=== PATIENT | male | born 1985 | race Hispanic/Latino ===

== ENCOUNTER 2020-03-12 17:01 | Emergency (ER) | payer SELFPAY ==
--- NOTE | 2020-03-12 18:58 | RAD REPORT ---
EXAM DESCRIPTION: RAD - Tib Fib Right - 03/12/2020 6:43 pm CLINICAL HISTORY: Swelling;Pain COMPARISON: No comparisons FINDINGS: Soft tissue swelling is seen affecting the right leg. No acute fracture or dislocation leonid dent.
--- NOTE | 2020-03-12 19:16 | RAD REPORT ---
EXAM DESCRIPTION: US - Extremity Venous Uni Ltd - 03/12/2020 7:06 pm CLINICAL HISTORY: PAIN Leg swelling and edema. COMPARISON: No comparisons FINDINGS: Right lower extremity venous system was interrogated with Doppler technique. Normal flow, compressibility and augmentation was noted. There is no DVT present.5 cm hematoma suspected anterior islas. IMPRESSION: No evidence of right lower extremity deep venous thrombosis.
--- NOTE | 2020-03-12 19:20 | EDPHYS ---
Physician Documentation [facility] Name: Gopi Ssoa Age: 34 yrs Sex: Male : 1985 Arrival Date: 03/12/2020 Time: 17:03 Bed 17 Private MD: PAKO Physician Sherif Frias HPI: 03/12 19:23 This 34 yrs old Male presents to ER via Ambulatory with complaints of Leg snw Swelling, Leg Pain. 19:23 The patient presents with an injury. The complaints affect the left islas. Context: The snw problem was sustained at home, resulted from a direct blow, from a solid object, the patient can fully bear weight, the patient is able to ambulate. Onset: The symptoms/episode began/occurred 1 week(s) ago, and became worse and became persistent. Associated signs and symptoms: Pertinent positives: swelling, bruising. Severity of symptoms: At their worst the symptoms were moderate. The patient has not experienced similar symptoms in the past. The patient has not recently seen a physician. Historical: - Allergies: 17:15 No Known Allergies; ss - Home Meds: 17:15 None [Active]; ss - PMHx: 17:15 None; ss - PSHx: 17:15 Knee surgery; ss - Immunization history:: Adult Immunizations up to date. - Social history:: Smoking status: Patient denies any tobacco usage or history of. ROS: 19:23 Constitutional: Negative for fever, chills, and weight loss, Eyes: Negative for injury, snw pain, redness, and discharge, ENT: Negative for injury, pain, and discharge, Neck: Negative for injury, pain, and swelling, Cardiovascular: Negative for chest pain, palpitations, and edema, Respiratory: Negative for shortness of breath, cough, wheezing, and pleuritic chest pain, Abdomen/GI: Negative for abdominal pain, nausea, vomiting, diarrhea, and constipation, Back: Negative for injury and pain, : Negative for injury, bleeding, discharge, and swelling, Skin: Negative for injury, rash, and discoloration, Neuro: Negative for headache, weakness, numbness, tingling, and seizure. 19:23 MS/extremity: Positive for injury or acute deformity, ecchymosis, erythema, pain, of the left islas. Exam: 19:21 Constitutional: This is a well developed, well nourished patient who is awake, alert, snw and in no acute distress. Head/Face: Normocephalic, atraumatic. Eyes: Pupils equal round and reactive to light, extra-ocular motions intact. Lids and lashes normal. Conjunctiva and sclera are non-icteric and not injected. Cornea within normal limits. Periorbital areas with no swelling, redness, or edema. Neck: Trachea midline, no thyromegaly or masses palpated, and no cervical lymphadenopathy. Supple, full range of motion without nuchal rigidity, or vertebral point tenderness. No Meningismus. Chest/axilla: Normal chest wall appearance and motion. Nontender with no deformity. No lesions are appreciated. Cardiovascular: Regular rate and rhythm with a normal S1 and S2. No gallops, murmurs, or rubs. Normal PMI, no JVD. No pulse deficits. Respiratory: Lungs have equal breath sounds bilaterally, clear to auscultation and percussion. No rales, rhonchi or wheezes noted. No increased work of breathing, no retractions or nasal flaring. Abdomen/GI: Soft, non-tender, with normal bowel sounds. No distension or tympany. No guarding or rebound. No evidence of tenderness throughout. Back: No spinal tenderness. No costovertebral tenderness. Full range of motion. Neuro: Awake and alert, GCS 15, oriented to person, place, time, and situation. Cranial nerves II-XII grossly intact. Motor strength 5/5 in all extremities. Sensory grossly intact. Cerebellar exam normal. Normal gait. Psych: Awake, alert, with orientation to person, place and time. Behavior, mood, and affect are within normal limits. 19:21 Skin: Appearance: normal except for affected area, injury, contusion(s), that are deep, of the left islas, dependent ecchymosis and edema to left lower leg, mild erythema. Vital Signs: 17:11 BP 117 / 83; Pulse 87; Resp 16; Temp 97.6(TE); Pulse Ox 97% on R/A; Weight 108.86 kg ss (R); Height 5 ft. 11 in. (180.34 cm) (R); 18:40 BP 116 / 92; Pulse 79; Resp 16; Pulse Ox 100% ; bp 17:11 Body Mass Index 33.47 (108.86 kg, 180.34 cm) MDM: 18:38 Patient medically screened. [facility] 19:22 Data reviewed: vital signs, nurses notes. Data interpreted: Pulse oximetry: on room air snw is 100 %. Interpretation: normal. Counseling: I had a detailed discussion with the patient and/or guardian regarding: the historical points, exam findings, and any diagnostic results supporting the discharge/admit diagnosis, the presence of at least one elevated blood pressure reading (>120/80) during this emergency department visit, radiology results, the need for outpatient follow up, to return to the emergency department if symptoms worsen or persist or if there are any questions or concerns that arise at home. Special discussion: I have referred the patient to see his PCP for further evaluation of high blood pressure. the parent(s) request. 03/12 17:22 Order name: Extremity Venous Uni Ltd US; Complete Time: 19:21 ca1 03/12 17:22 Order name: Tib Fib Right XRAY; Complete Time: 19:00 [facility] 03/12 19:02 Order name: Wound dressing: mildly compressive; Complete Time: 19:32 snw Administered Medications: 19:15 Drug: [place] 5 mg-325 mg 1 tabs {Note: rass 0.} Route: PO; ca1 Disposition: 03/12/20 19:19 Discharged to Home. Impression: Lower extremity hematoma. - Condition is Stable. - Discharge Instructions: Edema, Hematoma. - Prescriptions for Tylenol- Codeine #3 300-30 mg Oral Tablet - take 2 tablet by ORAL route every 6 hours As needed; 30 tablet. - Work release form, Medication Reconciliation Form, Thank You Letter, Antibiotic Education, Prescription Opioid Use form. - Follow up: Emergency Department; When: As needed; Reason: Worsening of condition. Follow up: Private Physician; When: 2 - 3 days; Reason: Recheck today's complaints, Continuance of care, Re-evaluation by your physician. Addendum: 03/14/2020 11:08 Co-signature as Attending Physician, Sherif Frias MD I agree with the assessment and c samaniego plan of care. Signatures: Dispatcher [employer] EDArun Mccarty RN RN Sherif Frias MD MD cha Waters, Shelly, TELECOMMUNICATIONS LINE MECHANIC-C TELECOMMUNICATIONS LINE MECHANIC-Csnw Lakeisha Solis RN RN ss Sanjana Huizar RN RN ca1 Corrections: (The following items were deleted from the chart) 03/12 19:33 19:19 03/12/2020 19:19 Discharged to Home. Impression: Lower extremity hematoma. sg Condition is Stable. Forms are Medication Reconciliation Form, Thank You Letter, Antibiotic Education, Prescription Opioid Use. Follow up: Emergency Department; When: As needed; Reason: Worsening of condition. Follow up: Private Physician; When: 2 - 3 days; Reason: Recheck today's complaints, Continuance of care, Re-evaluation by your physician. snw
--- NOTE | 2020-03-12 19:20 | ER ---
Nurse's Notes [facility] Name: Gopi Sosa Age: 34 yrs Sex: Male : 1985 Arrival Date: 03/12/2020 Time: 17:03 Bed 17 Private MD: Diagnosis: Lower extremity hematoma Presentation: 03/12 17:11 Chief complaint: Patient states: R Leg pain since 1.5 wk ago. Bruising and swelling of ss R foot 3-4 days. It started with my nephew's head colliding on my islas, it had a knot after, swelling and pain. Put some ice pack on, it got better but 3-4 days ago, there was swelling and bruising on my R foot. Coronavirus screen: Client denies travel out of the [place] in the last 14 days. At this time, the client does not indicate any symptoms associated with coronavirus-19. Ebola Screen: Patient negative for fever greater than or equal to 101.5 degrees Fahrenheit, and additional compatible Ebola Virus Disease symptoms Patient denies exposure to infectious person. Patient denies travel to an Ebola-affected area in the 21 days before illness onset. No symptoms or risks identified at this time. Initial Sepsis Screen: Does the patient meet any 2 criteria? No. Patient's initial sepsis screen is negative. Does the patient have a suspected source of infection? No. Patient's initial sepsis screen is negative. Risk Assessment: Do you want to hurt yourself or someone else? Patient reports no desire to harm self or others. Onset of symptoms was March 12, 2020. 17:11 Method Of Arrival: Ambulatory 17:11 Acuity: REBEL 4 Triage Assessment: 18:30 General: Appears in no apparent distress. uncomfortable, Behavior is cooperative, bp appropriate for age, anxious. Pain: Complains of pain in right leg. EENT: No deficits noted. Neuro: No deficits noted. Cardiovascular: No deficits noted. Respiratory: No deficits noted. GI: No signs and/or symptoms were reported involving the gastrointestinal system. : No signs and/or symptoms were reported regarding the genitourinary system. Derm: No deficits noted. Musculoskeletal: Circulation, motion, and sensation intact. Range of motion: intact in all extremities. Injury Description: Bruise sustained to right leg. Historical: - Allergies: 17:15 No Known Allergies; ss - Home Meds: 17:15 None [Active]; ss - PMHx: 17:15 None; ss - PSHx: 17:15 Knee surgery; ss - Immunization history:: Adult Immunizations up to date. - Social history:: Smoking status: Patient denies any tobacco usage or history of. Screenin:30 Abuse screen: Denies threats or abuse. Denies injuries from another. Nutritional bp screening: No deficits noted. Tuberculosis screening: No symptoms or risk factors identified. Fall Risk None identified. Assessment: 18:30 General: SEE TRIAGE NOTE. bp Vital Signs: 17:11 BP 117 / 83; Pulse 87; Resp 16; Temp 97.6(TE); Pulse Ox 97% on R/A; Weight 108.86 kg ss (R); Height 5 ft. 11 in. (180.34 cm) (R); 18:40 BP 116 / 92; Pulse 79; Resp 16; Pulse Ox 100% ; bp 17:11 Body Mass Index 33.47 (108.86 kg, 180.34 cm) ED Course: 17:03 Patient arrived in ED. ag5 17:15 Triage completed. ss 17:15 Arm band placed on right wrist. ss 17:48 Silvana Lee FNP-C is PHCP. snw 17:48 Sherif Frias MD is Attending Physician. snw 18:30 Patient has correct armband on for positive identification. Bed in low position. Call bp light in reach. Side rails up X2. Adult w/ patient. 18:35 Arley Bustamante, RN is Primary Nurse. bp 18:43 Tib Fib Right XRAY In Process Unspecified. EDMS 19:07 Extremity Venous Uni Ltd US In Process Unspecified. EDMS 19:30 No provider procedures requiring assistance completed. Patient did not have IV access sg during this emergency room visit. Administered Medications: 19:15 Drug: [place] 5 mg-325 mg 1 tabs {Note: rass 0.} Route: PO; ca1 Outcome: 19:19 Discharge ordered by . snw 19:30 Discharged to home ambulatory, with family. sg 19:30 Condition: good 19:30 Discharge instructions given to patient, family, Instructed on discharge instructions, follow up and referral plans. medication usage, safety practices, Demonstrated understanding of instructions, follow-up care, medications, Prescriptions given X 1. 19:33 Patient left the ED. sg Signatures: Dispatcher [employer] EDMS Arun Bryan, CHAPIN RN sg Silvana Lee, PARISH NURSE-C PARISH NURSE-Dontrellw Lakeisha Solis RN RN ss Arley Bustamante RN RN bp Sanjana Huizar RN RN [facility] Stephanie Watson ag5
[2020-03-12] MEDS ORDERED: HYDROCODONE/APAP 5/325 MG TAB ONE (19:22)
[2020-03-12 19:38] VITALS: TEMP 97.6
[2020-03-12 19:39] VITALS: BP 116/92; O2SAT 100
== END 2020-03-12 19:33 | disposition home or self-care (01) ==
LOC: ER 17:01
DX: S80.12XA Contusion of left lower leg, initial encounter (principal); W22.8XXA Striking against or struck by other objects, initial encounter; Y93.9 Activity, unspecified; Y92.009 Unspecified place in unspecified non-institutional (private) residence as the place of occurrence of the external cause
CPT/HCPCS: 93971; 99283

== ENCOUNTER 2021-03-05 14:12 | Inpatient (IN) | payer SELFPAY ==
[2021-03-05] MEDS ORDERED: METHYLPREDNISOLONE 125 MG INJ ONE (16:04)
[2021-03-05] MEDS ORDERED: NA CHLORIDE 0.9% 1,000 ML ONE (16:04)
[2021-03-05 16:06] LABS: Absolute Lymphocytes (CBC) 1.4 K/uL (0.7-4.9); Basophils % 0.7 % (0-1.3); Hematocrit 46.6 % (39.6-49.0); Lymphocytes % 13.5 % (15.3-44.8); MPV 9.5 fL (7.6-11.3); RBC Red Blood Cell Count 5.48 M/uL (4.33-5.43)
[2021-03-05] MEDS ORDERED: ASPIRIN 81 MG CHEWABLE TABLET ONE (16:06)
[2021-03-05 16:07] LABS: Protime INR 1.09
[2021-03-05 16:21] LABS: Arterial Blood Carboxyhemoglob 1.2 % (0-1.5); Blood O2 Saturation 91.1 % (92-98.5)
--- NOTE | 2021-03-05 16:48 | RAD REPORT ---
EXAM DESCRIPTION: RAD - Chest Single View - 03/05/2021 4:31 pm CLINICAL HISTORY: SOB COMPARISON: No comparisons FINDINGS: Lines: None. Lungs: Moderate patchy bilateral airspace disease. Pleural: No significant pleural effusions or pneumothorax. Cardiac: The heart size is within normal limits. Bones: No acute fractures. Other: IMPRESSION: Moderate bilateral airspace disease concerning for multifocal pneumonia, including Covid -19.
[2021-03-05 16:50] LABS: ALT/SGPT 138 U/L (12-78); AST/SGOT 79 U/L (15-37); Alkaline Phosphatase 120 U/L (45-117); BUN Blood Urea Nitrogen 12 mg/dL (7-18); Bicarbonate 24 mmol/L (21-32); Ferritin 1231.9 ng/mL (26-388); Glucose Level 99 mg/dL (74-106); Magnesium 2.4 mg/dL (1.8-2.4); NT PRO-BNP 19 pg/mL (<125); Potassium 3.8 mmol/L (3.5-5.1); Protein, Total 7.7 g/dL (6.4-8.2); Sodium Level 133 mmol/L (136-145); Troponin (Emerg Dept Use Only) < 0.02 ng/mL (0.0-0.045)
--- NOTE | 2021-03-05 17:37 | RAD REPORT ---
EXAM DESCRIPTION: CT - Chest For Pe Angio - 03/05/2021 5:29 pm CLINICAL HISTORY: CHEST PAIN COMPARISON: Chest Single View dated 03/05/2021 FINDINGS: Chest Wall: No suspicious thyroid nodules or pathologic lymphadenopathy. Lungs: Moderate to severe bilateral airspace disease. Pleura: No significant effusions or pneumothorax. Mediastinum/willis: Reactive sized hilar lip and mediastinal lymph nodes. Pulmonary arteries/Aorta: No filling defect identified. No aortic aneurysm. Heart: No significant pericardial effusion. Normal heart size. Upper abdomen: No acute abnormality. Hepatic steatosis. Bones: No acute abnormality. All CT scans are performed using dose optimization technique as appropriate and may include automated exposure control or mA/KV adjustment according to patient size. IMPRESSION: Negative for pulmonary embolism. Moderate to severe bilateral airspace disease concernin g for Covid-19 pneumonia.
--- NOTE | 2021-03-05 18:06 | ER ---
Nurse's Notes [facility] Name: Gopi Sosa Age: 35 yrs Sex: Male : 1985 Arrival Date: 03/05/2021 Time: 14:15 Bed 2 Private MD: Diagnosis: Pneumonia due to SARS-associated coronavirus;Hypoxemia Presentation: 03/05 14:32 Chief complaint: Parent and/or Guardian states: Pt was Covid tested on February 252020, results Positive. Pt O2 at home was 88% RA. Pt states is unable to eat and hold anything down. Pt states coughing and difficulty breathing. Coronavirus screen: Vaccine status: Patient reports being unvaccinated. Client denies travel out of the [place] in the last 14 days. Client reports previous positive COVID test result. Ebola Screen: Patient negative for fever greater than or equal to 101.5 degrees Fahrenheit, and additional compatible Ebola Virus Disease symptoms. Initial Sepsis Screen: Does the patient meet any 2 criteria? No. Patient's initial sepsis screen is negative. Does the patient have a suspected source of infection? No. Patient's initial sepsis screen is negative. Risk Assessment: Do you want to hurt yourself or someone else? Patient reports no desire to harm self or others. Onset of symptoms was February 25, 2021. 14:32 Method Of Arrival: Ambulatory vg1 14:32 Acuity: REBEL 3 vg1 Triage Assessment: 14:35 General: Appears in no apparent distress. uncomfortable, Behavior is calm, cooperative. vg1 Pain: Denies pain. Historical: - Allergies: 14:35 No Known Allergies; vg1 - Home Meds: 14:35 None [Active]; vg1 - PMHx: 14:35 None; vg1 - PSHx: 14:35 None; vg1 - Immunization history:: Adult Immunizations up to date, Client reports having NOT received the Covid vaccine. - Social history:: Smoking status: Patient denies any tobacco usage or history of. Screenin:33 Abuse screen: Denies threats or abuse. Denies injuries from another. Nutritional hb screening: No deficits noted. Tuberculosis screening: No symptoms or risk factors identified. Fall Risk None identified. Assessment: 14:41 Reassessment: Pt placed on NC at 2L, Ox2 is 94%. vg1 15:30 General: Appears in no apparent distress. Behavior is calm, cooperative. Pain: Denies hb pain. Neuro: Level of Consciousness is awake, alert, obeys commands, Oriented to person, place, time, situation. Cardiovascular: Patient's skin is warm and dry. Respiratory: Reports shortness of breath at rest Respiratory effort is even, unlabored, Respiratory pattern is regular, symmetrical. GI: No signs and/or symptoms were reported involving the gastrointestinal system. : No signs and/or symptoms were reported regarding the genitourinary system. EENT: No signs and/or symptoms were reported regarding the EENT system. Derm: Skin is pink, warm \T\ dry. Musculoskeletal: No signs and/or symptoms reported regarding the musculoskeletal system. 16:30 Reassessment: Patient appears in no apparent distress at this time. Patient and/or hb family updated on plan of care and expected duration. Pain level reassessed. Patient is alert, oriented x 3, equal unlabored respirations, skin warm/dry/pink. 17:30 Reassessment: Patient appears in no apparent distress at this time. Patient and/or hb family updated on plan of care and expected duration. Pain level reassessed. Patient is alert, oriented x 3, equal unlabored respirations, skin warm/dry/pink. 18:29 Reassessment: Patient appears in no apparent distress at this time. hb Vital Signs: 14:32 BP 109 / 84; Pulse 100; Resp 20; Temp 98.4(O); Pulse Ox 92% on R/A; Weight 113.4 kg; vg1 Height 5 ft. 11 in. (180.34 cm); Pain 0/10; 16:45 BP 89 / 58; Pulse 93; Pulse Ox 89% on 2 lpm NC; ch5 17:05 BP 94 / 58; Pulse 84; Resp 18; Pulse Ox 94% on 2 lpm NC; ch5 18:29 BP 115 / 80; Pulse 78; Resp 24; Pulse Ox 92% on 2 lpm NC; hb 21:30 BP 122 / 78; Pulse 72; Resp 22; Temp 98.0; Pulse Ox 95% ; ea 14:32 Body Mass Index 34.87 (113.40 kg, 180.34 cm) vg1 ED Course: 14:15 Patient arrived in ED. ds1 14:35 Triage completed. vg1 14:35 Arm band placed on. vg1 15:15 Sherif Perez PA is PHCP. cp 15:15 Kennedy Sinha MD is Attending Physician. cp 15:38 Sarika Danielson, RN is Primary Nurse. hb 16:30 Patient has correct armband on for positive identification. Bed in low position. Call light in reach. 16:31 XRAY Chest (1 view) In Process Unspecified. EDMS 17:19 Inserted saline lock: 20 gauge in left antecubital area, using aseptic technique. dh3 17:30 CT Chest For PE Angio In Process Unspecified. EDMS 18:05 Reynaldo Wise MD is Hospitalizing Provider. cp 22:08 No provider procedures requiring assistance completed. Patient admitted, IV remains in ea place. Administered Medications: 16:01 Drug: Aspirin Chewable Tablet 324 mg Route: PO; hb 18:30 Follow up: Response: No adverse reaction hb 16:02 Drug: SOLU-Medrol (methylPrednisoLONE) 125 mg Route: IVP; Site: left antecubital; hb 17:00 Follow up: Response: No adverse reaction hb 16:02 Drug: NS 0.9% 1000 ml Route: IV; Rate: 1 bolus; Site: left antecubital; hb 18:30 Drug: NS 0.9% 1000 ml Route: IV; Rate: 1 bolus; Site: left antecubital; hb Outcome: 18:06 Decision to Hospitalize by Provider. cp 22:08 Admitted to Med/surg accompanied by tech, via wheelchair, with chart, Report called to ea Receiving nurse on fourth floor 22:08 Condition: stable 22:08 Instructed on the need for admit, Demonstrated understanding of instructions. 22:10 Patient left the ED. ea Signatures: Dispatcher [employer] EDCT Fay Campbell ds1 Sherif Perez PA PA cp Sarika Danielson, RN RN Lakeshia Dickerson 3 Monie Mcgrath RN RN ea Garcia, Victoria, RN RN 1 Panchito Kang, RN RN ch5
--- NOTE | 2021-03-05 18:07 | EDPHYS ---
Physician Documentation [facility] Name: Gopi Sosa Age: 35 yrs Sex: Male : 1985 Arrival Date: 03/05/2021 Time: 14:15 Bed 2 Private MD: ED Physician Kennedy Sinha HPI: 03/05 15:40 This 35 yrs old Male presents to ER via Ambulatory with complaints of Covid +. cp 15:40 The patient has shortness of breath at rest. Onset: The symptoms/episode began/occurred cp gradually, and became worse today. 15:40 Duration: The symptoms are continuous, and are steadily getting worse. Associated signs cp and symptoms: Pertinent positives: non-productive cough, Pertinent negatives: chest pain, fever, vomiting. Patient reports testing positive for COVID-19 on 02-25-2021 with symptoms starting a couple days earlier. Historical: - Allergies: 14:35 No Known Allergies; vg1 - Home Meds: 14:35 None [Active]; vg1 - PMHx: 14:35 None; vg1 - PSHx: 14:35 None; vg1 - Immunization history:: Adult Immunizations up to date, Client reports having NOT received the Covid vaccine. - Social history:: Smoking status: Patient denies any tobacco usage or history of. ROS: 15:45 Constitutional: Negative for body aches, chills, fever, poor PO intake. cp 15:45 Eyes: Negative for injury, pain, redness, and discharge. cp 15:45 ENT: Negative for ear pain, sore throat, difficulty swallowing, difficulty handling secretions. 15:45 Cardiovascular: Negative for chest pain, edema, palpitations. 15:45 Respiratory: Positive for cough, with no reported sputum, shortness of breath, at rest. Negative for wheezing. 15:45 Abdomen/GI: Negative for abdominal pain, nausea, vomiting, and diarrhea. 15:45 Neuro: Negative for altered mental status, headache, weakness. 15:45 All other systems are negative. cp Exam: 15:50 Constitutional: The patient appears in no acute distress, alert, awake, cp non-diaphoretic, non-toxic, well developed, well nourished, obese. 15:50 Head/Face: Normocephalic, atraumatic. cp 15:50 Eyes: Periorbital structures: appear normal, Conjunctiva: normal, no exudate, no injection, Sclera: no appreciated abnormality, Lids and lashes: appear normal, bilaterally. 15:50 ENT: External ear(s): are unremarkable, Nose: is normal, Mouth: Lips: moist, Oral mucosa: pink and intact, moist, Posterior pharynx: Airway: no evidence of obstruction, patent, Tonsils: are normal in appearance, erythema, is not appreciated, exudate, is not appreciated. 15:50 Neck: ROM/movement: is normal, is supple, without pain, no range of motions limitations, no meningismus. 15:50 Chest/axilla: Inspection: normal, Palpation: is normal, no crepitus, no tenderness. 15:50 Cardiovascular: Rate: tachycardic, Rhythm: regular, Edema: is not appreciated, JVD: is not appreciated. 15:50 Respiratory: the patient does not display signs of respiratory distress, Respirations: labored breathing, that is mild, shallow respirations, that is mild, Breath sounds: bronchial sounds, that are mild, are heard diffusely, decreased breath sounds, that are mild, throughout, stridor, is not appreciated, wheezing: is not appreciated. 15:50 Abdomen/GI: Inspection: abdomen appears normal, Palpation: abdomen is soft and non-tender, in all quadrants. 15:50 Back: pain, is absent, ROM is normal. 15:50 Skin: no rash present. 15:50 Neuro: Orientation: to person, place \T\ time. Mentation: is normal, Motor: moves all fours, strength is normal. 15:55 ECG was reviewed by the Attending Physician. cp Vital Signs: 14:32 BP 109 / 84; Pulse 100; Resp 20; Temp 98.4(O); Pulse Ox 92% on R/A; Weight 113.4 kg; vg1 Height 5 ft. 11 in. (180.34 cm); Pain 0/10; 16:45 BP 89 / 58; Pulse 93; Pulse Ox 89% on 2 lpm NC; ch5 17:05 BP 94 / 58; Pulse 84; Resp 18; Pulse Ox 94% on 2 lpm NC; ch5 18:29 BP 115 / 80; Pulse 78; Resp 24; Pulse Ox 92% on 2 lpm NC; hb 21:30 BP 122 / 78; Pulse 72; Resp 22; Temp 98.0; Pulse Ox 95% ; ea 14:32 Body Mass Index 34.87 (113.40 kg, 180.34 cm) vg1 MDM: 15:31 Patient medically screened. cp 16:00 Differential diagnosis: pneumonia, Pneumothorax pulmonary edema, Pulmonary Embolism cp Sepsis. 17:45 Data reviewed: vital signs, nurses notes, lab test result(s), EKG, radiologic studies, cp plain films. 17:45 Test interpretation: by ED physician or midlevel provider: ECG, plain radiologic cp studies. 18:05 Data interpreted: library monitor: rhythm is normal sinus rhythm, Interpretation: cp normal rate, Pulse oximetry: on room air when ambulating is 88 %. Interpretation: hypoxia. Plan: O2 by NC applied. 18:05 Counseling: I had a detailed discussion with the patient and/or guardian regarding: the cp historical points, exam findings, and any diagnostic results supporting the discharge/admit diagnosis, lab results, radiology results, the need for further work-up and treatment in the hospital. Physician consultation: Jadiel Celaya was called at 18:00, was contacted at 18:00, regarding admission, to the telemetry unit. patient's condition. 03/05 15:34 Order name: Basic Metabolic Panel; Complete Time: 17:06 03/05 17:06 Interpretation: Normal except: NA 133. 03/05 15:34 Order name: CBC with Diff; Complete Time: 17:06 03/05 17:07 Interpretation: Normal except: RBC 5.48; TARYN% 75.4; LYM% 13.5. 03/05 15:34 Order name: LFT's; Complete Time: 17:06 03/05 15:34 Order name: Magnesium; Complete Time: 17:06 03/05 15:34 Order name: NT PRO-BNP; Complete Time: 17:06 03/05 15:34 Order name: PT-INR; Complete Time: 17:06 03/05 15:34 Order name: Troponin (emerg Dept Use Only); Complete Time: 17:06 03/05 15:34 Order name: XRAY Chest (1 view); Complete Time: 17:06 03/05 15:34 Order name: CRP; Complete Time: 17:06 03/05 15:34 Order name: Ferritin; Complete Time: 17:06 03/05 15:34 Order name: CT Chest For PE Angio; Complete Time: 17:41 03/05 17:41 Interpretation: Report reviewed. 03/05 16:02 Order name: ABG; Complete Time: 17:06 03/05 20:15 Order name: US EDMS 03/05 15:34 Order name: EKG; Complete Time: 15:34 03/05 15:34 Order name: Cardiac monitoring; Complete Time: 16:02 03/05 15:34 Order name: EKG - Nurse/Tech; Complete Time: 16:02 03/05 15:34 Order name: IV Saline Lock; Complete Time: 16:02 03/05 15:34 Order name: Labs collected and sent; Complete Time: 16:02 03/05 15:34 Order name: O2 Per Protocol; Complete Time: 16:02 03/05 15:34 Order name: O2 Sat Monitoring; Complete Time: 16:02 EC:55 Rate is 100 beats/min. Rhythm is regular. AR interval is normal. QRS interval is cp normal. T waves are Inverted in leads III, aVR. Interpreted by me. Reviewed by me. Administered Medications: 16:01 Drug: Aspirin Chewable Tablet 324 mg Route: PO; hb 18:30 Follow up: Response: No adverse reaction hb 16:02 Drug: SOLU-Medrol (methylPrednisoLONE) 125 mg Route: IVP; Site: left antecubital; hb 17:00 Follow up: Response: No adverse reaction hb 16:02 Drug: NS 0.9% 1000 ml Route: IV; Rate: 1 bolus; Site: left antecubital; hb 18:30 Drug: NS 0.9% 1000 ml Route: IV; Rate: 1 bolus; Site: left antecubital; hb Disposition: 03/06 05:20 Co-signature as Attending Physician, Kennedy Sinha MD I agree with the assessment and kdr plan of care. Disposition Summary: 03/05/21 18:06 Hospitalization Ordered Hospitalization Status: Inpatient Admission cp Provider: Reynaldo Wise cp Location: Telemetry/MedSurg (Inpatient) cp Condition: Stable cp Problem: new cp Symptoms: have improved cp Bed/Room Type: Standard Room Assignment: 429(03/05/21 21:37) cg Diagnosis - Pneumonia due to SARS-associated coronavirus cp - Hypoxemia cp Forms: - Medication Reconciliation Form cp - SBAR form cp Signatures: Dispatcher [employer] EDKennedy Carrillo MD MD kdr Page, Corey, PA PA cp Garcia, Cindy, RN RN cg Sarika Danielson RN RN Desiree Pitt RN RN vg1 Corrections: (The following items were deleted from the chart) 03/05 21:37 18:06 cp cg
--- NOTE | 2021-03-05 18:46 | P.HP ---
Certification for Inpatient Patient admitted to: Inpatient With expected LOS: >2 Midnights Patient will require the following post-hospital care: None Practitioner: I am a practitioner with admitting privileges, knowledge of patient current condition, hospital course, and medical plan of care. Services: Services provided to patient in accordance with Admission requirements found in Title 42 Section 412.3 of the Code of Federal Regulations Patient History Date of Service: 03/05/21 Reason for admission: COVID-19 pneumonia History of Present Illness: 35-year-old otherwise healthy male presents emerge department for shortness of breath. Patient ports testing positive for Covid on 02/25/2021, patient is not vaccinated. Patient was found to be hypoxic on room air with saturations around 88 to 89% on room air. Further evaluation labs significant for sodium 133 ferritin 1230 1T bili 2.0D bili 1.0 AST 79 ALT 138 alk phos 120 C-reactive protein 66.2, chest x-ray demonstrated moderate bilateral airspace disease concerning for multifocal pneumonia, CT chest negative for pulmonary embolism moderate to severe bilateral airspace disease concerning for COVID-19 pneumonia. ED provider wishes to admit for further evaluation and management of COVID-19 pneumonia. - Past Medical/Surgical History -: None -: Right knee Psychosocial/ Personal History: Employed at the [email or web address] lives with family - Family History Family History: Reviewed- Non-Contributory - Social History Smoking Status: Never smoker Alcohol use: No CD- Drugs: No Caffeine use: No Place of Residence: Home Review of Systems 10-point ROS is otherwise unremarkable Respiratory: Cough, Shortness of Breath Physical Examination - Physical Exam General: Alert, In no apparent distress, Oriented x3 HEENT: Atraumatic, PERRLA, Mucous membr. moist/pink, EOMI, Sclerae nonicteric Neck: Supple, 2+ carotid pulse no bruit, No LAD, Without JVD or thyroid ab normality Respiratory: Normal air movement, Diminished Cardiovascular: Regular rate/rhythm, Normal S1 S2 Gastrointestinal: Normal bowel sounds, No tenderness Musculoskeletal: No tenderness Integumentary: No rashes Neurological: Normal gait, Normal speech, Normal strength at 5/5 x4 extr, Normal tone, Normal affect Lymphatics: No axilla or inguinal lymphadenopathy - Studies Laboratory Data (last 24 hrs) 03/05/21 15:57: PT 12.6 H, INR 1.09 03/05/21 15:57: WBC 10.10, Hgb 15.6, Hct 46.6, Plt Count 327 03/05/21 15:57: Sodium 133 L, Potassium 3.8, BUN 12, Creatinine 0.92, Glucose 99, Magnesium 2.4, Total Bilirubin 2.0 H, AST 79 H, ALT 138 H, Alkaline Phosphatase 120 H Assessment and Plan - Plan Assessment: Acute hypoxic respiratory failure secondary to COVID-19 pneumonia Elevated LFTs Plan: Acute hypoxic respiratory failure secondary to COVID-19 pneumonia: Continue with IV steroids, oral supplements, supplemental oxygen as needed, daily room air saturations, room air saturations for home oxygen. If patient clinical c ondition remains the same over the course next 0.4 hours can likely be discharged on home oxygen. Elevated LFTs: We will obtain ultrasound right upper quadrant, patient without any abdominal pain at this time. DVT PPX: Lovenox Code status: Full Discharge Plan: Home Plan to discharge in: 48 Hours - Advance Directives Does patient have a Living Will: No Does patient have a Durable POA for Healthcare: No - Code Status/Comfort Care Code Status Assessed: Yes (Full code) Critical Care: No Time Spent Managing Pts Care (In Minutes): 55
[2021-03-05] MEDS ORDERED: ACETAMINOPHEN 500 MG TAB PO PRN (20:11)
[2021-03-05] MEDS ORDERED: ONDANSETRON 4 MG/2 ML VIAL IV PRN (20:11)
--- NOTE | 2021-03-05 20:14 | RAD REPORT ---
EXAM DESCRIPTION: US - Abdomen Exam Limited - 03/05/2021 7:34 pm CLINICAL HISTORY: eval liver/gallbladder, elev. LFT COMPARISON: No comparisons FINDINGS: The liver demonstrates diffuse fatty infiltration.No focal liver lesion or intrahepatic bi liary dilatation.No evidence of portal vein thrombosis. Negative for cholelithiasis. No gallbladder w all thickening. IMPRESSION: Hepatic steatosis. Negative for cholelithiasis or biliary ductal dilatation.
[2021-03-05] MEDS: METHYLPREDNISOLONE 40 MG INJ IV SCH (21:00)
[2021-03-05] MEDS: ASCORBIC ACID 500 MG TABLET PO SCH (21:00)
[2021-03-05] MEDS ORDERED: METHYLPREDNISOLONE 40 MG INJ ONE (21:19)
[2021-03-05] MEDS ORDERED: ASCORBIC ACID 500 MG TABLET ONE (21:19)
[2021-03-05] MEDS: NA CHLORIDE 0.9% 1,000 ML IV SCH (22:50)
[2021-03-05 23:37] VITALS: BMI 32.5
[2021-03-06 02:07] LABS: Urine Appearance CLEAR (Clear); Urine Blood NEGATIVE (Negative); Urine Color DK YELLOW (Yellow); Urine Glucose NEGATIVE (Negative); Urine Protein 1+ (Negative); Urine Specific Gravity >=1.030 (1.005-1.030); Urine pH 5.5 (5.0-7.0)
[2021-03-06 02:20] LABS: Urine Bilirubin NEGATIVE (Negative); Urine Microscopic Reflex ORDER UMIC
[2021-03-06 02:47] LABS: Urine Bacteria 20-50 /HPF (NONE SEEN); Urine RBC <5 /HPF (NONE SEEN)
[2021-03-06] MEDS: NA CHLORIDE 0.9% 1,000 ML IV SCH ×2 (05:06→16:55)
[2021-03-06 07:03] LABS: Absolute Lymphocytes (CBC) 1.1 K/uL (0.7-4.9); Basophils % 0.3 % (0-1.3); Hematocrit 41.2 % (39.6-49.0); Lymphocytes % 18.8 % (15.3-44.8); MPV 9.5 fL (7.6-11.3); RBC Red Blood Cell Count 4.87 M/uL (4.33-5.43)
[2021-03-06 07:19] LABS: ALT/SGPT 123 U/L (12-78); AST/SGOT 55 U/L (15-37); Albumin 2.6 g/dL (3.4-5.0); Alkaline Phosphatase 106 U/L (45-117); BUN Blood Urea Nitrogen 12 mg/dL (7-18); Bicarbonate 26 mmol/L (21-32); Bilirubin Total 1.2 mg/dL (0.2-1.0); Ferritin 1067.5 ng/mL (26-388); Glucose Level 138 mg/dL (74-106); Potassium 3.9 mmol/L (3.5-5.1); Sodium Level 136 mmol/L (136-145)
[2021-03-06] MEDS ORDERED: POTASSIUM CL SA 10 MEQ TAB PO ONE (07:43)
[2021-03-06] MEDS: ENOXAPARIN 40 MG/0.4 ML SQ SCH (08:46)
[2021-03-06] MEDS: METHYLPREDNISOLONE 40 MG INJ IV SCH ×2 (08:46→19:44)
[2021-03-06] MEDS: ASPIRIN EC 81 MG TAB PO SCH (08:47)
[2021-03-06] MEDS: THIAMINE HCL 100 MG TABLET PO SCH (08:47)
[2021-03-06] MEDS: ASCORBIC ACID 500 MG TABLET PO SCH ×4 (08:47→19:43)
[2021-03-06] MEDS: VITAMIN D 1000 UNIT TAB PO SCH (08:47)
[2021-03-06] MEDS: ZINC SULFATE 220 MG CAP PO SCH (08:47)
[2021-03-06] MEDS: BENZONATATE 100 MG CAP PO PRN ×2 (10:20→19:44)
--- NOTE | 2021-03-06 17:07 | P.DS ---
Admission Date: 03/05/21 Discharge Date: 03/06/21 Disposition: ROUTINE DISCHARGE Discharge Condition: GOOD Reason for Admission: COVID-19 pneumonia Procedures: Abd U/S (03/05): The liver demonstrates diffuse fatty infiltration.No focal liver lesion or intrahepatic biliary dilatation.No evidence of portal vein thrombosis. Negative for cholelithiasis. No gallbladder wall thickening. IMPRESSION: Hepatic steatosis. Negative for cholelithiasis or biliary ductal dilatation. CXR (03/05): Moderate bilateral airspace disease concerning for multifocal pneumonia, including Covid-19. CTA Chest (03/05): Negative for pulmonary embolism. Moderate to severe bilateral airspace disease concerning for Covid-19 pneumonia. Problem List Acute hypoxic respiratory failure secondary to COVID-19 pneumonia Elevated LFTs secondary to hepatic steatotis Brief History of Present Illness: 35-year-old otherwise healthy male presents emerge department for shortness of breath. Patient ports testing positive for Covid on 02/25/2021, patient is not vaccinated. Patient was found to be hypoxic on room air with saturations around 88 to 89% on room air. Further evaluation labs significant for sodium 133 ferritin 1230 1T bili 2.0D bili 1.0 AST 79 ALT 138 alk phos 120 C-reactive protein 66.2, chest x-ray demonstrated moderate bilateral airspace disease concerning for multifocal pneumonia, CT chest negative for pulmonary embolism moderate to severe bilateral airspace disease concerning for COVID-19 pneumonia. ED provider wishes to admit for further evaluation and management of COVID-19 pneumonia. Hospital Course: Patient was treated for COVID-19 pneumonia per protocol with steroids, vitamin supplementation, and oxygen supplementation. He remained stable on 2 L nasal cannula. Inflammatory markers improved. He was ambulated in the room without much dyspnea. Discharged home with home oxygen, and to continue prednisone, aspirin, vitamin supplementation. Follow-up with her PCP in 3 to 5 days Follow-up with Dr. Armando in 1 week. Vital Signs/Physical Exam: Temp Pulse Resp BP Pulse Ox 96.8 F 64 20 103/64 91 03/06/21 16:00 03/06/21 16:00 03/06/21 16:00 03/06/21 16:00 03/06/21 16:00 General: Alert, In no apparent distress HEENT: Sclerae nonicteric Neck: Supple, No LAD Respiratory: Diminished (at bases bilaterally. nonlabored on 2L NC) Cardiovascular: No edema, Regular rate/rhythm Gastrointestinal: Soft and benign, Non-distended, No tenderness Musculoskeletal: No erythema, No tenderness Integumentary: No rashes Neurological: Normal speech, Normal affect Laboratory Data at Discharge: WBC 5.90 K/uL (4.3-10.9) D 03/06/21 06:25 Hgb 14.0 g/dL (13.6-17.9) 03/06/21 06:25 Hct 41.2 % (39.6-49.0) 03/06/21 06:25 Plt Count 329 K/uL (152-406) 03/06/21 06:25 PT 12.6 SECONDS (9.5-12.5) H 03/05/21 15:57 INR 1.09 03/05/21 15:57 Sodium 136 mmol/L (136-145) 03/06/21 06:25 Potassium 3.9 mmol/L (3.5-5.1) 03/06/21 06:25 BUN 12 mg/dL (7-18) 03/06/21 06:25 Creatinine 0.62 mg/dL (0.55-1.3) 03/06/21 06:25 Glucose 138 mg/dL (74-106) H 03/06/21 06:25 Magnesium 2.4 mg/dL (1.8-2.4) 03/05/21 15:57 Total Bilirubin 1.2 mg/dL (0.2-1.0) H 03/06/21 06:25 AST 55 U/L (15-37) H 03/06/21 06:25 ALT 123 U/L (12-78) H 03/06/21 06:25 Alkaline Phosphatase 106 U/L (45-117) 03/06/21 06:25 Home Medications: Aspirin [Aspirin EC 81 MG] 81 mg PO DAILY 30 Days #30 tablet. 03/06/21 predniSONE [Prednisone] 20 mg PO SEECOM 14 Days #21 tablet 03/06/21 New Medications: Aspirin [Aspirin EC 81 MG] 81 mg PO DAILY 30 Days #30 tablet. predniSONE [Prednisone] 20 mg PO SEECOM 14 Days #21 tablet Diet: Regular Activity: Ad swati Followup: NONE,NONE [Primary Care Provider] - Time spent managing pt's care (in minutes): 35
--- NOTE | 2021-03-06 18:24 | EKG ---
Test Date: 2021-03-05 Test Time: 15:49:17 Tube Winder: HB MEASUREMENT RESULTS: Intervals: Rate: 100 NC: 126 QRSD: 78 QT: 392 QTc: 505 [place]: P: 38 NC: 126 QRS: 19 T: 9 INTERPRETIVE STATEMENTS: Normal sinus rhythm Prolonged QT Abnormal ECG No previous ECG available for comparison Electronically Signed On 03-06-21 18:21:01 CDT by Dex Newman
[2021-03-07] MEDS: NA CHLORIDE 0.9% 1,000 ML IV SCH ×2 (01:39→12:14)
[2021-03-07 05:50] LABS: Absolute Lymphocytes (CBC) 1.6 K/uL (0.7-4.9); Basophils % 0.7 % (0-1.3); Hematocrit 40.5 % (39.6-49.0); MPV 9.7 fL (7.6-11.3); RBC Red Blood Cell Count 4.77 M/uL (4.33-5.43)
[2021-03-07 06:11] LABS: ALT/SGPT 183 U/L (12-78); AST/SGOT 77 U/L (15-37); Albumin 2.5 g/dL (3.4-5.0); Alkaline Phosphatase 109 U/L (45-117); BUN Blood Urea Nitrogen 14 mg/dL (7-18); Bicarbonate 24 mmol/L (21-32); Bilirubin Total 0.8 mg/dL (0.2-1.0); Ferritin 952.2 ng/mL (26-388); Glucose Level 164 mg/dL (74-106); Potassium 4.4 mmol/L (3.5-5.1); Protein, Total 6.4 g/dL (6.4-8.2); Sodium Level 140 mmol/L (136-145)
[2021-03-07] MEDS: ASCORBIC ACID 500 MG TABLET PO SCH ×2 (07:57→12:14)
[2021-03-07] MEDS: METHYLPREDNISOLONE 40 MG INJ IV SCH (07:57)
[2021-03-07] MEDS: VITAMIN D 1000 UNIT TAB PO SCH (07:57)
[2021-03-07] MEDS: ZINC SULFATE 220 MG CAP PO SCH (07:58)
[2021-03-07] MEDS: ASPIRIN EC 81 MG TAB PO SCH (07:58)
[2021-03-07] MEDS: ENOXAPARIN 40 MG/0.4 ML SQ SCH (07:58)
[2021-03-07] MEDS: THIAMINE HCL 100 MG TABLET PO SCH (07:58)
[2021-03-07 09:45] VITALS: O2SAT 92
[2021-03-07 12:51] VITALS: BP 118/72; TEMP 97.3
--- NOTE | 2021-03-07 15:36 | P.PN ---
Subjective Date of Service: 03/07/21 Chief Complaint: COVID-19 pneumonia Subjective: Improving (Oxygen unable to be set up yesterday, so patient was not discharged. Feeling better today, able to ambulate within the room without dyspnea. Denies chest pain, no abdominal pain, urinating without issue) Review of Systems 10-point ROS is otherwise unremarkable Physical Examination - Vital Signs Temperature: 97.3 F Blood Pressure: 118/72 Pulse: 64 Respirations: 16 Pulse Ox (%): 92 Assessment & Plan Physician Review Additional Text: Physical exam GEN: Alert, oriented, NAD HEENT: Normal conjunctiva, sclera anicteric CV: Regular rate and rhythm, no edema Pulm: Nonlabored respiration on room air ABD: Soft, nontender, nondistended Neuro: Normal speech, normal affect Problem list Acute hypoxemic respiratory failure secondary to COVID-19 pneumonia Fatty liver Patient unable to be discharged yesterday due to home oxygen not being set up Patient reports he has electricity at home now We will check room air sats, with ambulation Plan to discharge patient today, with or without oxygen if he does not need it Patient feeling better Please see discharge summary dated 03/06 Time Spent Managing Pts Care (In Minutes): 35
== END 2021-03-07 14:58 | disposition home or self-care (01) | DRG 177 ==
LOC: ER 14:12 → ERHOLD 18:40 → 4TH 21:45
PROVIDERS: ADMIT Hospitalist; ATTEND Hospitalist
DX: U07.1 COVID-19 (principal); J12.82 Pneumonia due to coronavirus disease 2019; J96.01 Acute respiratory failure with hypoxia; K76.0 Fatty (change of) liver, not elsewhere classified
CPT/HCPCS: 36415; 71045; 71275; 76705; 80048; 80053; 80076; 81003; 81015; 82728; 82805; 83735; 83880; 84484; 85025; 85610; 86140; 87086; 87088; 93005; 96374; 99285; J1650; J2920; J2930; J7030; Q9967; U0003